=== PATIENT | male | born 1990 | race Two or more races ===

== ENCOUNTER 2019-06-03 22:20 | Emergency (ER) | payer SELFPAY ==
[~2019-06-03] VITALS: Ht 177.8 cm; Wt 75.3 kg
[2019-06-03 23:02] VITALS: BP 118/77
== END 2019-06-03 23:04 | disposition left against medical advice (07) ==
LOC: ER 22:20
DX: Z53.21 Procedure and treatment not carried out due to patient leaving prior to being seen by health care provider (principal); F41.9 Anxiety disorder, unspecified